=== PATIENT | male | born 1955 | race Caucasian/White ===

== ENCOUNTER 2017-05-29 17:05 | Emergency (ER) | payer MEDICAID ==
[2017-05-29 17:36] VITALS: BMI 34.1
[2017-05-29 17:39] VITALS: RESP 18; TEMP 98.8; O2SAT 99
--- NOTE | 2017-05-29 19:51 | ED PDOC ---
Arrival/HPI - General Chief Complaint: Lower Extremity Problem/Injury Time Seen by Provider: 05/29/17 19:28 Historian: Patient - History of Present Illness Narrative History of Present Illness (Text): 05/29/17 19:46 62 year old male, whose history includes kidney transplant, presents to the Emergency department complaining of worsening pain and swelling to right ankle status post twisting his ankle 2 days ago. Patient also reports difficulty walking, secondary to pain. Patient denies any fever, chills, chest pain, shortness of breath, nausea, vomiting, diarrhea, urinary symptoms, back pain, neck pain, headache, dizziness or any other complaints. Time/Duration: Other (2 days ago) Symptom Onset: Sudden Symptom Course: Worsening Severity Level: Moderate Past Medical History - Provider Review Nursing Documentation Reviewed: Yes - Infectious Disease Hx of Infectious Diseases: None - Tetanus Immunization Tetanus Immunization: Unknown - Cardiac Hx Hypertension: Yes Hx Pacemaker: No - Pulmonary Hx Respiratory Disorders: No - Neurological Hx Neurological Disorder: No - HEENT Hx HEENT Disorder: No - Renal Hx Renal Cancer: Yes (right) Other/Comment: right nephrectomy 2007 - Endocrine/Metabolic Hx Diabetes Mellitus Type 1: Yes Hx Hypothyroidism: Yes - Hematological/Oncological Hx Cancer: Yes (right kidney) - Integumentary Hx Dermatological Disorder: No - Musculoskeletal/Rheumatological Hx Falls: No - Gastrointestinal Hx Gastrointestinal Disorders: No - Genitourinary/Gynecological Hx Genitourinary Disorders: No - Psychiatric Hx Psychophysiologic Disorder: No Hx Emotional Abuse: No Hx Physical Abuse: No Hx Substance Use: No - Surgical History Hx Coronary Stent: Yes (1) Other/Comment: R kidney - Anesthesia Hx Anesthesia: Yes Hx Anesthesia Reactions: No Hx Malignant Hyperthermia: No - Suicidal Assessment Feels Threatened In Home Enviroment: No Family/Social History - Physician Review Nursing Documentation Reviewed: Yes Family/Social History: Unknown Family HX Smoking Status: Former Smoker Hx Alcohol Use: No Hx Substance Use: No Allergies/Home Meds Allergies/Adverse Reactions: Allergies Iodinated Contrast- Oral and IV Dye Allergy (Verified 05/29/17 17:36) ANAPHYLAXIS Home Medications: Home Meds Medication Instructions Recorded Confirmed Allopurinol [Zyloprim] 1 tab PO DAILY 05/29/17 05/29/17 Alogliptin Benzoate [Nesina] 1 tab PO BID 05/29/17 05/29/17 Atorvastatin [Lipitor] 1 tab PO DAILY 05/29/17 05/29/17 Carvedilol [Coreg] 1 tab PO DAILY 05/29/17 05/29/17 Clopidogrel [Plavix] 1 tab PO DAILY 05/29/17 05/29/17 Colchicine [Colcrys] 1 tab PO DAILY PRN 05/29/17 05/29/17 Ergocalciferol [Drisdol 50,000 1 tab PO Q7D 05/29/17 05/29/17 Intl Units Cap] Famotidine [Pepcid] 1 tab PO DAILY 05/29/17 05/29/17 Glimepiride [amaRYL] 1 tab PO DAILY 05/29/17 05/29/17 Insulin Lispro Mix 75/25 [HumaLOG 15 units SC DAILY 05/29/17 05/29/17 Mix 75/25] Insulin Lispro Mix 75/25 [HumaLOG 35 units SC HS 05/29/17 05/29/17 Mix 75/25] Levothyroxine [Synthroid] 188 mcg PO DAILY 05/29/17 05/29/17 Mv,Min10/Folic Acid/D3/Ala/Lut 1 tab PO DAILY 05/29/17 05/29/17 [Strovite One Caplet] Omeprazole [Omeprazole] 1 cap PO DAILY 05/29/17 05/29/17 Valsartan [Diovan] 1 tab PO DAILY 05/29/17 05/29/17 Valsartan [Diovan] 1 tab PO DAILY 05/29/17 05/29/17 Review of Systems - Physician Review All systems were reviewed & negative as marked: Yes - Review of Systems Constitutional: absent: Fevers, Night Sweats Respiratory: absent: SOB Cardiovascular: absent: Chest Pain Gastrointestinal: absent: Diarrhea, Nausea, Vomiting Genitourinary Male: absent: Dysuria Musculoskeletal: Other (right ankle pain and swelling). absent: Back Pain, Neck Pain Neurological: absent: Headache, Dizziness Physical Exam - Physical Exam Physical Exam Limitations: Other (isolated exam) Vital Signs Reviewed: Yes Vital Signs Temp Pulse Resp BP Pulse Ox 05/29/17 17:39 98.8 F 93 H 18 162/103 H 99 Temperature: Afebrile Blood Pressure: Hypertensive Pulse: Regular Respiratory Rate: Normal Appearance: Positive for: Well-Appearing, Non-Toxic, Comfortable Pain Distress: None Mental Status: Positive for: Alert and Oriented X 3 - Systems Exam Lower Extremity: Present: NORMAL PULSES, Tenderness (right lateral malleolus), Swelling (right lateral malleolus), Neurovascularly Intact. No: Other (right knee is unremarkable) Medical Decision Making ED Course and Treatment: 05/29/17 19:44 Impression: 62 year old male presents to the Emergency department complaining of pain and swelling to right ankle status post twisting right ankle. Plan: -- Right ankle xray -- Acetaminophen -- Reassess and disposition Progress Notes: - RAD Interpretation Radiology Orders: 05/29/17 19:36 ANKLE RIGHT 3 VIEWS ROUTINE [RAD] Stat - Medication Orders Current Medication Orders: Discontinued Medications Acetaminophen (Tylenol 325mg Tab) 650 mg PO STAT STA Stop: 05/29/17 19:38 Last Admin: 05/29/17 19:46 Dose: 650 mg MAR Pain/Vitals Document 05/29/17 19:46 JOL (Rec: 05/29/17 19:46 JOL [id number]) Pain Reassessment Is This A Pain ReAssessment? No Sleep Is patient sleeping during reassessment? No Presence of Pain Presence of Pain Yes Pain Scale Used Pain Scale Used Numeric - Scribe Statement The provider has reviewed the documentation as recorded by the Scribe Marcos Carmona All medical record entries made by the Scribe were at my direction and personally dictated by me. I have reviewed the chart and agree that the record accurately reflects my personal performance of the history, physical exam, medical decision making, and the department course for this patient. I have also personally directed, reviewed, and agree with the discharge instructions and disposition. Disposition/Present on Arrival - Present on Arrival Any Indicators Present on Arrival: No History of DVT/PE: No History of Uncontrolled Diabetes: No Urinary Catheter: No History of Decub. Ulcer: No History Surgical Site Infection Following: None - Disposition Have Diagnosis and Disposition been Completed?: Yes Diagnosis: Right ankle sprain Disposition: HOME/ ROUTINE Disposition Time: 21:00 Patient Plan: Discharge Condition: STABLE Referrals: Dante Steiner MD [Primary Care Provider] - Follow up with primary - Notes Notes (Text): 05/29/17 20:50 Rest with leg up for 2-3 days. Tylenol if needed for pain.
[2017-05-29 22:35] VITALS: BP 145/85; PULSE 88
--- NOTE | 2017-05-30 08:46 | RAD ---
PROCEDURE: Right Ankle Radiographs. HISTORY: swelling/pain COMPARISON: None FINDINGS: BONES: No acute fracture or destructive bony lesion identified. JOINTS: Normal. No osteoarthritis. Ankle mortise maintained. Talar dome intact SOFT TISSUES: Prominent lateral malleolar soft tissue edema appreciated. OTHER FINDINGS: None. IMPRESSION: Prominent lateral malleolar soft tissue edema. No acute fracture dislocation.
== END 2017-05-29 21:11 | disposition home or self-care (01) ==
LOC: ED 17:05
DX: S93.401A Sprain of unspecified ligament of right ankle, initial encounter (principal); X50.1XXA Overexertion from prolonged static or awkward postures, initial encounter; E03.9 Hypothyroidism, unspecified; E10.9 Type 1 diabetes mellitus without complications; I10 Essential (primary) hypertension; Z87.891 Personal history of nicotine dependence; Z94.0 Kidney transplant status